=== PATIENT | male | born 1980 | race Caucasian/White ===

== ENCOUNTER 2017-06-26 10:00 | Emergency (ER) | payer OTHER ==
[~2017-06-26] VITALS: Ht 182.9 cm; Wt 74.8 kg
[~2017-06-26 10:00] MED LIST: ADDERALL 30 MG30 MG PO; CLEOCIN HCL300 MG PO; HYDROCODONE-AP1 EAC6 PO; MOBIC7.5 MG PO; NEURONTIN 300300 M1 PO; NEURONTIN 400M400 M2 PO; NORCO 5-325 TA1 EACH PO; ZOLOFT100 MG PO
[2017-06-26] MEDS ORDERED: ULTRAM 50MG TAB50 MG PO (11:07)
[2017-06-26 11:44] VITALS: BP 115/55
[2017-06-26] MEDS ORDERED: DURAGESIC1 EAC1 TRANSDERM (11:46)
== END 2017-06-26 12:06 | disposition home or self-care (01) ==
LOC: ER 10:00
DX: G89.18 Other acute postprocedural pain (principal); S80.01XA Contusion of right knee, initial encounter; I80.8 Phlebitis and thrombophlebitis of other sites; M79.89 Other specified soft tissue disorders; F90.9 Attention-deficit hyperactivity disorder, unspecified type; F17.210 Nicotine dependence, cigarettes, uncomplicated; X58.XXXA Exposure to other specified factors, initial encounter; Y93.89 Activity, other specified; Y92.89 Other specified places as the place of occurrence of the external cause; Y99.8 Other external cause status